=== PATIENT | male | born 1980 | race Caucasian/White ===

== ENCOUNTER → 2020-02-02 | Day surgery (SDC) | payer OTHER ==
[~2020-02-02] MED LIST: BUPIVACAINE HCL 0.5% INJ 30 ML VIAL INJ ONE; CEFAZOLIN SOD 1 GM/NS 50ML 100 ML IV ONE; DEXAMETHASONE SOD PHOS INJ 4 MG/ML VIAL ONE; FENTANYL CITRATE/PF 100MCG/2 ML INJ ONE; IBUPROFEN400 MG PO; KETOROLAC TROMETHAMINE 30 MG/ML VIAL ONE; LIDOCAINE HCL 2% LOCAL INJ 5 ML SDV VIAL INJ ONE; MIDAZOLAM HCL 2 MG/2 ML VIAL ONE; ONDANSETRON HCL INJ 2MG/ML 2ML 2 MG/ML VIAL ONE; PROPOFOL IV EMULSION 10 MG/ML 20 ML VIAL ONE; SEVOFLURANE INHAL SOLN 250 ML PEN BTL ONE; TESTOSTERO200 MG/1 M IM; VITAMIN D PO
[2020-02-02 17:05] VITALS: BP 125/78
--- NOTE | 2020-02-08 20:48 | Operative Report ---
DATE OF PROCEDURE: 02/02/2020 SURGEON: Juan Flores MD PREOPERATIVE DIAGNOSIS: Right carpal tunnel syndrome. POSTOPERATIVE DIAGNOSIS: Right carpal tunnel syndrome. OPERATIONS AND PROCEDURE PERFORMED: The patient underwent an extensile right carpal tunnel release. ANESTHESIA: General endotracheal intubation anesthesia. IV FLUIDS: Per the anesthesia record. COMPLICATIONS: None. BRIEF DESCRIPTION OF THE PATIENT'S OPERATIVE PROCEDURE: Mr. Richardson was taken to the operating room and placed in supine position on the operating table. Following induction of general anesthesia as well as endotracheal intubation, the patient's right upper extremity was examined under anesthesia. He was found to have no gross abnormalities. The patient's upper extremity was prepped and draped in standard surgical fashion. The case was begun by creating incision in line with the web space between the long and ring finger. This incision was carried through skin only. Blunt dissection was used to deepen the incision to what appeared to be the transverse carpal ligament. This was incised in line with the skin incision, but failed to reveal the carpal canal. The incision was then extended proximally to identify the median nerve in the forearm. This incision was carried across the distal forearm crease just proximal to the wrist. Incision was carried through skin only. Blunt dissection was used to deepen the incision and the palmaris longus tendon was identified. Inferior and medial to the palmaris longus tendon, the median nerve was identified. The nerve was then tracked from the forearm into the palm and was found to track significantly medial to its normal anatomic positioning. The overlying investments were released from the nerve as the nerve was tracked into the palm of the hand. This resulted in complete release of the transverse carpal ligament overlying the nerve. The floor of the carpal canal was evaluated and found to have no abnormalities. The tourniquet was deflated and hemostasis was obtained. The wound was then closed in a multilayer fashion. Sterile dressings were applied and the patient was awakened and taken to postanesthesia care unit in stable condition. This was a difficult case as the patient had abnormal anatomy, which required greater surgical time as well as a greater meticulous surgical dissection to safely identify the median nerve and protect the nerve throughout its decompression. Juan Flores MD EBR/MODL /[id number]
== END | disposition home or self-care (01) ==
LOC: OR 06:53
PROVIDERS: ATTEND Specialist
DX: G56.01 Carpal tunnel syndrome, right upper limb (principal); Z01.812 Encounter for preprocedural laboratory examination; Z20.828 Contact with and (suspected) exposure to other viral communicable diseases; S16.1XXD Strain of muscle, fascia and tendon at neck level, subsequent encounter
CPT/HCPCS: 64721; J0690; J1100; J1885; J2001; J2250; J2405; J2704; J3010; U0002

== ENCOUNTER → 2020-02-23 | Day surgery (SDC) | payer OTHER ==
[~2020-02-23] MED LIST changes: +ACETAMINOPHEN/CODEINE 300MG - 30MG TAB ONE; +CEPHALEXIN500 MG PO; -KETOROLAC TROMETHAMINE 30 MG/ML VIAL ONE; +LIDOCAINE HCL 2% JELLY 5 ML TUBE ONE
[2020-02-23 09:20] VITALS: BP 131/81
== END | disposition home or self-care (01) ==
LOC: OR 05:39
PROVIDERS: ATTEND Specialist
DX: G56.02 Carpal tunnel syndrome, left upper limb (principal); S16.1XXA Strain of muscle, fascia and tendon at neck level, initial encounter; E78.5 Hyperlipidemia, unspecified; X58.XXXA Exposure to other specified factors, initial encounter; Z01.812 Encounter for preprocedural laboratory examination; Z20.828 Contact with and (suspected) exposure to other viral communicable diseases; Z68.31 Body mass index [BMI] 31.0-31.9, adult
CPT/HCPCS: 64721; J0690; J1100; J2001 ×2; J2250; J2405; J2704; J3010; U0002